=== PATIENT | female | born 1945 | race Hispanic/Latino ===

== ENCOUNTER 2017-09-25 11:08 | Day surgery (SDC) | payer MEDICARE, BC ==
[2017-09-22 11:55] VITALS: BMI 32.1
[2017-09-25 12:10] LABS: BLOOD UREA NITROGEN 17 mg/dL (7-21); CALCIUM 9.6 mg/dL (8.4-10.5); CARBON DIOXIDE 26 mmol/L (21-33); CHLORIDE 101 mmol/L (98-107); GFR AFRICAN-AMERICAN > 60; GLUCOSE,RANDOM 97 mg/dL (70-110); POTASSIUM 4.2 mmol/L (3.6-5.0); SODIUM 137 mmol/L (132-148)
[2017-09-25 12:13] LABS: BASO # 0.02 K/mm3 (0.0-2.0); BASO % 0.2 % (0.0-3.0); EOS % 0.5 % (1.5-5.0); GRAN # 5.94 (1.4-6.5); GRAN % 67.8 % (50.0-68.0); HEMATOCRIT 40.6 % (36.0-48.0); LYMPH # 2.3 (1.2-3.4); LYMPH % 26.6 % (22.0-35.0); MEAN CELL VOLUME 92.5 fl (80.0-105.0); MEAN CORPUSCULAR HEMOGLOBIN 30.3 pg (25.0-35.0); MEAN CORPUSCULAR HGB CONC 32.8 g/dl (31.0-37.0); MONO # 0.4 (0.1-0.6); MONO % 4.9 % (1.0-6.0); RED CELL DISTRIBUTION WIDTH 14.9 % (11.5-14.5); WHITE BLOOD COUNT 8.8 10^3/ul (4.5-11.0)
[2017-09-25 12:20] LABS: FREE T4 1.21 ng/dL (0.78-2.19); INR 1.04 (0.93-1.08); PARTIAL THROMBOPLASTIN TIME 23.5 Seconds (25.1-36.5)
[2017-09-25 12:34] LABS: THYROID STIMULATING HORMONE 0.57 mIU/mL (0.46-4.68)
[2017-09-25] MEDS ORDERED: Midazolam 2 MG/2 ML VIAL ONE (16:02)
[2017-09-25] MEDS ORDERED: Oxycodone/Acetaminophen 5/325 mg Tab PO PRN (17:48)
[2017-09-25] MEDS ORDERED: Sodium Chloride 0.45% 1,000 ML IV SCH (18:00)
[2017-09-25 18:27] VITALS: PULSE 64; RESP 20; TEMP 97.8; O2SAT 97
[2017-09-25 18:38] VITALS: BP 146/79
--- NOTE | 2017-09-25 18:52 | US ---
PROCEDURE: Ultrasound-guided left thyroid fine needle aspiration biopsy. CLINICAL HISTORY: 1.4 cm dominant hypoechoic left thyroid nodule. Evaluate for malignancy PHYSICIAN(S): Kash Pimentel M.D. TECHNIQUE: The relative risks and indications for the procedure were explained to the patient and consent obtained. The patient was placed supine on the stretcher with the neck extended and preliminary sonography of the thyroid performed. This reveal well-circumscribed hypoechoic 1.4 cm nodule in the mid to lower left thyroid. Additional smaller nodules are present. The neck was prepped and draped in the usual sterile fashion. Conscious sedation and monitoring were provided throughout the procedure by a nurse. 1% Xylocaine was used to anesthetize the skin and soft tissues at the access site. Three passes with a 22-gauge needle were performed under ultrasound guidance for fine needle aspiration of the 1.4 cm hypoechoic nodule in the left thyroid. The slides were reviewed by pathology and deemed adequate. The patient tolerated the procedure well. IMPRESSION: 1. Ultrasound guided fine needle aspiration of a 1.4 cm hyponodule in the left thyroid.
== END 2017-09-25 19:00 | disposition home or self-care (01) ==
LOC: SDS 11:08
PROVIDERS: ATTEND Radiology Vascular & Interventional Radiology
DX: E04.1 Nontoxic single thyroid nodule (principal)
CPT/HCPCS: 10022; 36415; 80048; 84439; 84443; 85025; 85610; 85730; 88173; 88305; J2250; J2405; J7030

== ENCOUNTER 2019-02-22 10:45 | Outpatient (CLI) | payer MEDICARE, BC | END 2019-02-22 10:46 | disposition home or self-care (01) | LOC: RAD 10:45 | DX: M81.0 Age-related osteoporosis without current pathological fracture (principal) ==